=== PATIENT | male | born 1995 | race Caucasian/White ===

== ENCOUNTER 2018-11-08 15:57 | Emergency (ER) | payer OTHER, SELFPAY ==
[2018-11-08 16:02] VITALS: BP 116/69; PULSE 88; RESP 16; TEMP 37.1; O2SAT 98
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
[2018-11-08 17:27] VITALS: BP 118/78; PULSE 78; RESP 18; O2SAT 98
== END 2018-11-08 17:28 | disposition home or self-care (01) ==
PROVIDERS: Emergency Provider Emergency Medicine
DX: S16.1XXA Strain of muscle, fascia and tendon at neck level, initial encounter (principal); V49.40XA Driver injured in collision with unspecified motor vehicles in traffic accident, initial encounter
CPT/HCPCS: 99282

== ENCOUNTER → 2018-11-20 15:03 | Outpatient (CLI) | payer OTHER, SELFPAY ==
--- NOTE | 2018-11-20 | DI.RAD.S_ITS ---
PROCEDURE: XR CERVICAL SPINE 2V OR 3V INDICATIONS: NECK/BACK PAIN TECHNIQUE: 3 view(s) of the cervical spine were acquired. COMPARISON: [facility], CR, XR THORACIC SPINE 2V, 11/20/2018, 15:36. FINDINGS: Bones: There is possible fracture deformity involving the T1 spinous process although radiographically this may be chronic. Please correlate clinically for point tenderness. Elsewhere, no fractures or dislocations to the C7 level. The lateral masses of C1 appear intact on the odontoid view. No suspicious bony lesions. Soft tissues: No prevertebral soft tissue swelling. IMPRESSION: Age-indeterminate fracture deformity of the T1 spinous process. Please correlate clinically to point tenderness. Dictated by: Fabio Nathan M.D. on 11/20/2018 at 16:36 Approved by: Fabio Nathan M.D. on 11/20/2018 at 16:39
--- NOTE | 2018-11-20 | DI.RAD.S_ITS ---
PROCEDURE: XR THORACIC SPINE 2V INDICATIONS: NECK/BACK PAIN TECHNIQUE: 2 views of the thoracic spine were acquired. COMPARISON: None. FINDINGS: Bones: No fractures or dislocations. No suspicious bony lesions. 12 pairs of ribs are noted, and appear intact where visualized. Soft tissues: No paravertebral stripe thickening. IMPRESSION: No acute bony abnormality of the thoracic spine. Dictated by: Hai Weems M.D. on 11/20/2018 at 17:19 Approved by: Hai Weems M.D. on 11/20/2018 at 17:19
--- NOTE | 2018-11-20 | DI.RAD.S_ITS ---
PROCEDURE: XR LUMBAR SPINE 2-3V INDICATIONS: NECK AND BACK PAIN TECHNIQUE: 2 views of the lumbar spine were acquired. COMPARISON: [facility], , L-SPINE 2-3 VIEWS, 10/29/2010, 18:38. FINDINGS: Bones: No fracture or focal osseous destruction. Mild narrowing of the L5-S1 space. Mild lower thoracic spondylosis Soft tissues: Overlying bowel gas pattern is normal. No suspicious soft tissue calcifications. IMPRESSION: Mild L5-S1 disc degeneration, which appears progressed since the prior study dated 10/29/10. Dictated by: Fabio Nathan M.D. on 11/20/2018 at 16:20 Approved by: Fabio Nathan M.D. on 11/20/2018 at 16:22
== END ==
PROVIDERS: PCP Internal Medicine; Visit Provider Internal Medicine
DX: M54.2 Cervicalgia (principal); M54.5 Low back pain; M51.37 Other intervertebral disc degeneration, lumbosacral region; S22.019A Unspecified fracture of first thoracic vertebra, initial encounter for closed fracture
CPT/HCPCS: 72040; 72070; 72100

== ENCOUNTER → 2018-11-22 11:30 | Outpatient (CLI) | payer OTHER, SELFPAY ==
--- NOTE | 2018-11-22 | DI.CT.S_ITS ---
PROCEDURE: CT CERVICAL SPINE WO CON INDICATIONS: T1 SPINUS PROCESS FRACTURE TECHNIQUE: Noncontrast 3 mm thick sections acquired from the skull base to the T4 level. Sagittal and coronal reformats were then constructed. For radiation dose reduction, the following was used: automated exposure control, adjustment of mA and/or kV according to patient size. COMPARISON: [facility], CR, XR CERVICAL SPINE 2V OR 3V, 11/20/2018, 15:38. FINDINGS: Image quality: Excellent. Bones: Slight deformity of the T1 spinous process which could represent a congenital process versus sequela of remote trauma. No acute fractures or dislocations. Visualized superior ribs are intact. Soft tissues: Prevertebral soft tissues are normal in thickness. No paravertebral hematomas. No apical pneumothoraces. IMPRESSION: No acute fracture. No acute osseous lesion. If symptoms and/or clinical suspicion for pathology persists, evaluation with MRI may be helpful for further assessment. Dictated by: Catherine Lucas MD, PhD on 11/22/2018 at 11:44 Approved by: Catherine Lucas MD, PhD on 11/22/2018 at 11:50
== END ==
PROVIDERS: PCP Internal Medicine; Visit Provider Internal Medicine
DX: S22.019A Unspecified fracture of first thoracic vertebra, initial encounter for closed fracture (principal)
CPT/HCPCS: 72125

== ENCOUNTER → 2019-01-12 07:12 | Outpatient (CLI) | payer OTHER, SELFPAY ==
[2019-01-12 08:40] LABS: Free T4, Direct Thyroxine 1.22 ng/dL (0.78-2.19)
[2019-01-12 08:54] LABS: Thyroid Stimulating Hormone 2.88 uIU/mL (0.47-4.68)
[2019-01-12 09:40] LABS: Alanine Aminotransferase 24 IU/L (21-72); Albumin 4.4 g/dL (3.5-5.0); Albumin Globulin Ratio 1.6 (1.0-2.8); Alkaline Phosphatase 53 U/L (38-126); Aspartate Aminotransferase 13 IU/L (17-59); Bilirubin Total 1.2 mg/dL (0.2-1.3); Blood Urea Nitrogen 14 mg/dL (9-20); Carbon Dioxide 27 mmol/L (22-32); Chloride 102 mmol/L (98-107); Estimated Glomerular Filt Rate > 60.0 mL/min (>60); Globulin 2.7 g/dL (1.7-4.1); Glucose 90 mg/dL (70-100); HEMOLYSIS < 15 (0-50); Potassium 4.2 mmol/L (3.4-5.1); Sodium 140 mmol/L (137-145); Total Protein 7.1 g/dL (6.3-8.2)
[2019-01-12 10:12] LABS: Cortisol AM (Before 10AM) 16.7 ug/dL (4.46-22.7)
[2019-01-15 19:58] LABS: Sex Hormone Binding Globulin 26 nmol/L (10-50); Testosterone, Bioavailable 185.7 ng/dL (110.0-575.0); Testosterone, Total 543 ng/dL (250-1100); Testosterone,Free 90.3 pg/mL (46.0-224.0)
[2019-01-17 23:40] LABS: Metanephrine, Free 36 pg/mL (< OR = 57); Normetanephrine, Free 42 pg/mL (< OR = 148)
[2019-01-18 08:32] LABS: Albumin 4.5
== END ==
PROVIDERS: PCP Internal Medicine; Visit Provider Nurse Practitioner
DX: R63.4 Abnormal weight loss (principal)
CPT/HCPCS: 36415; 80053; 82040; 82533; 83835; 84270; 84403; 84439; 84443

== ENCOUNTER 2020-06-17 09:35 | Emergency (ER) | payer OTHER, SELFPAY ==
[2020-06-17 09:43] VITALS: BP 110/73; PULSE 93; RESP 15; TEMP 37.1; O2SAT 97; BMI 26.5
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
--- NOTE | 2020-06-17 10:16 | DI.CT.S_ITS ---
PROCEDURE: CT SOFT TISSUE NECK W CON INDICATIONS: Injury/pain/hemoptysis TECHNIQUE: After the administration of intravenous contrast, 3.0 mm axial sections acquired from the sella to the aortic arch. Additional oblique axial 3.0 mm sections acquired through the pharynx. 3 mm thick coronal and sagittal reformats were generated. For radiation dose reduction, the following was used: automated exposure control. COMPARISON: None. FINDINGS: Image quality: Excellent. Lymph nodes: No enlarged lymph nodes seen throughout the neck. Vessels: Visualized vasculature appears patent. Neck spaces: Mucosal prominence noted in the tongue base concerning for inflammation or hypertrophy of the lingual tonsils. There is marked edema and swelling involving the epiglottis and aryepiglottic folds concerning for epiglottitis. The vocal cords, false vocal cords, pyriform sinuses, vallecula, and tongue base all appear normal. Extramucosal spaces appear unremarkable. Glands: The parotid and submandibular glands appear normal. Thyroid gland is within normal limits. Miscellaneous: Visualized brain and orbits appear normal. Lung apices appear clear. Superficial soft tissues appear normal. Bones: No suspicious bony lesions. Visualized sinuses and mastoids appear unremarkable. IMPRESSION: 1. Marked edema and swelling involving the epiglottis and aryepiglottic folds concerning for epiglottitis. There is narrowing of the airway at the level of the epiglottis. Recommend ENT consultation. 2. Irregular mucosal prominence involving the tongue base likely related to lingual tonsil inflammation or hypertrophy. Findings discussed with Dr. Carvajal on June 17, 2020 at 10:01 a.m.. Dictated by: Catherine Lucas MD, PhD on 06/17/2020 at 9:57 Approved by: Catherine Lucas MD, PhD on 06/17/2020 at 10:03
[2020-06-17 10:35] LABS: Add Manual Diff / Slide Review NO; Basophils Absolute Auto 0 /uL (0-100); Basophils Percent Auto 0.2 % (0-2); Eosinophils Absolute Auto 0 /uL (0-450); Eosinophils Percent Auto 0.3 % (2-4); Hematocrit 42.9 % (41-53); Hemoglobin 14.9 g/dL (13.5-17.5); Lymphocytes Absolute Auto 1000 /uL (1100-4500); Mean Corpuscular HGB Conc 34.8 % (30-36); Mean Corpuscular Hemoglobin 30.8 PG (26-34); Mean Corpuscular Volume 88.6 fL (80-100); Monocytes Absolute Auto 800 /uL (0-900); Monocytes Percent Auto 9.1 % (3-14); Neutrophils Absolute Auto 6600 /uL (1500-7000); Neutrophils Percent Auto 78.4 % (50-75); Platelet Count 115 X10^3/uL (150-400); Red Blood Cell Count 4.84 X10^6/uL (4.5-5.9); Red Cell Distribution Width 12.6 % (11.6-14.8); White Blood Cell Count 8.4 X10^3/uL (4.5-11.0)
[2020-06-17] MEDS: SODIUM CHLORIDE 0.9% 1,000 ML 1000 ML IV (10:36)
[2020-06-17 10:45] LABS: Alanine Aminotransferase 20 IU/L (<50); Albumin 4.5 g/dL (3.5-5.0); Albumin Globulin Ratio 1.4 (1.0-2.8); Alkaline Phosphatase 72 U/L (38-126); Aspartate Aminotransferase 18 IU/L (17-59); BUN Creatinine Ratio 21.7 (6-22); Bilirubin Total 1.1 mg/dL (0.2-1.3); Blood Urea Nitrogen 15 mg/dL (9-20); Calcium 9.2 mg/dL (8.4-10.2); Carbon Dioxide 29 mmol/L (22-32); Chloride 98 mmol/L (98-107); Estimated Glomerular Filt Rate > 60.0 mL/min (>60); Globulin 3.2 g/dL (1.7-4.1); Glucose 99 mg/dL (70-100); HEMOLYSIS < 15 (0-50); Potassium 4.2 mmol/L (3.4-5.1); Sodium 135 mmol/L (137-145); Total Protein 7.7 g/dL (6.3-8.2)
[2020-06-17 11:13] VITALS: PULSE 78; O2SAT 100
[2020-06-17] MEDS: levoFLOXacin 750 MG/150 ML PIGGYBACK 100 MG IV (11:21)
[2020-06-17 11:30] VITALS: BP 104/67; PULSE 72; RESP 17; O2SAT 99
[2020-06-17 12:00] VITALS: BP 110/66; PULSE 80; RESP 16; O2SAT 99
[2020-06-17 12:30] VITALS: BP 108/69; PULSE 81; RESP 16; O2SAT 99
[2020-06-17] MEDS: dexAMETHasone 20 MG in SODIUM CHLORIDE 0.9% 50 ML 208 ML IV (12:58)
[2020-06-17 13:00] VITALS: BP 109/67; PULSE 76; RESP 17; O2SAT 99
== END 2020-06-17 13:37 | disposition home or self-care (01) ==
PROVIDERS: Emergency Provider Emergency Medicine; PCP Family Medicine
DX: S10.0XXA Contusion of throat, initial encounter (principal); R04.2 Hemoptysis; M54.2 Cervicalgia; W22.8XXA Striking against or struck by other objects, initial encounter
CPT/HCPCS: 36415; 70491; 80053; 85025; 96365; 96366; 96367; 99284; J1100; J1956; Q9967